=== PATIENT | male | born 1970 | race Caucasian/White ===

== ENCOUNTER 2024-03-03 16:09 | Outpatient (CLI) | payer BC, SELFPAY ==
--- NOTE | ~2024-03-03 | XR_ITS ---
XR_[id number] 03/03/2024 16:25 Indication: Neck pain Procedure: 3 view cervical spine Comparison: No prior studies for comparison. Findings: Straightening of cervical lordosis. Vertebral body heights are maintained. No fracture, sub luxation or dislocation. There are prominent ventral osteophytes at multiple levels. No prevertebral soft tissue swelling. Mild multilevel uncinate hypertrophy. Odontoid process is normal. Impression: 1: Mild cervical spondylosis. Reviewed, dictated and finalized at location B. Impression: 1: Mild cervical spondylosis.
== END 2024-03-03 16:10 ==
PROVIDERS: PCP Family Medicine; Visit Provider Nurse Practitioner Family
DX: M79.601 Pain in right arm (principal); M47.892 Other spondylosis, cervical region
CPT/HCPCS: 72040

== ENCOUNTER 2024-03-11 15:01 | Outpatient (CLI) | payer BC, SELFPAY ==
--- NOTE | ~2024-03-11 | MR_ITS ---
EXAMINATION: MR cervical spine wo con DATE: 03/11/2024 15:47 INDICATION: Cervicalgia. Neck pain. TECHNIQUE: Magnetic resonance imaging (MRI) of the cervical spine was performed without intravenous c ontrast. Sequences included sagittal T2-weighted FSE, sagittal T2-weighted FS FSE, sagittal T1-weight ed FSE, axial MERGE and axial T2-weighted FSE. COMPARISON: Cervical spine radiographs dated 03/03/2024 FINDINGS: Bone alignment is normal. Vertebral body heights are normal. Bone marrow signal intensity is normal . There is mild disc height loss and mild disc desiccation from C2-C3 through C7-T1. There are annula r fissures with disc extrusions at each of these levels. There is ossification of the posterior longi tudinal ligament overlying the disc extrusions. There is a small focus of increased fluid signal like ly related to myelomalacia at the left central cord at the level of C5-C6 where the cord is compresse d and deformed by the ossification. Remaining cord signal intensity is normal. Cervical soft tissues are unremarkable. The following disc levels are specifically discussed: C2-C3: Annular fissure and central disc extrusion with disc material extending at least 3 mm cephalad to the level of the inferior endplate of C2 with overlying ossification of the posterior longitudina l ligament. There is mild bilateral uncovertebral joint osteoarthritis. There is mild bilateral facet joint osteoarthritis. There is no neural foraminal stenosis. There is mild central canal stenosis at the level of the disc space with moderate stenosis with indentation of the undersurface of the cord resulting from ossification of the posterior longitudinal ligament or cartilage at the midportion of the vertebral body or the central canal measures 7 mm AP in the mid sagittal plane. 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 There is mild bilateral uncovertebral joint osteoarthritis. There is mi ld left and minimal right facet joint osteoarthritis. There is moderate bilateral neural foraminal st enosis. There is moderate central canal stenosis measuring 7 mm AP in the mid sagittal plane and inde nting the ventral surface of the cord. C4-C5: Small amount of heterotopic ossification overlying an annular fissure and central disc extrusi on. There is mild bilateral uncovertebral osteoarthritis. There is mild bilateral facet osteoarthriti s. There is mild right and mild to moderate left neural foraminal stenosis. There is mild central can al stenosis measuring 8-9 mm AP in the midsagittal plane with mild indentation of the ventral surface of the cord. 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 There is mild bilateral uncovertebral joint osteoarthritis. There is mi ld bilateral facet joint osteoarthritis. There is moderate right and [id number] left neural f oraminal stenosis. There is severe central canal stenosis measuring 5 mm in the mid sagittal plane wi th indention of the ventral surface of the cord or prominent on the left where there is a underlying small focal central T2 hyperintense myelomalacia. 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 There is mild right and moderate left uncovertebral joint osteoarthriti s. There is mild bilateral facet joint osteoarthritis. There is moderate bilateral neural foraminal s tenosis. There is moderate central canal stenosis measuring 8 mm AP in the mid sagittal plane with in dention of the ventral surface of the cord. C6-C7: Small amount of heterotopic ossification of the posterior longitudinal ligament overlying an a nnular fissure with disc extrusion. There is moderate right and severe left uncovertebral joint osteo arthritis. There is mild bilat
== END 2024-03-11 15:02 ==
LOC: GOSHIMG 15:02
PROVIDERS: PCP Family Medicine; Visit Provider Nurse Practitioner Family
DX: M47.892 Other spondylosis, cervical region (principal)
CPT/HCPCS: 72141

== ENCOUNTER 2024-10-19 01:53 | Day surgery (SDC) | payer BC, SELFPAY ==
[2024-10-09 13:52] VITALS: BMI 36.1
[2024-10-19 12:52] VITALS: BP 135/70; PULSE 62; RESP 20; TEMP 35.9; O2SAT 99
--- NOTE | 2024-10-19 13:07 | P.PNAN_ITS ---
Anes - Initial Pre Proc Eval Procedure: Operation Date: 10/19/24 14:00 Proposed Procedures p Screening Colonoscopy - Nomi Lakhani MD Date/Time: 10/19/24 13:07 Surgeon: Nomi Lakhani MD Pre Op Diagnosis: Family history of colon polyps, unspecified Patient Data Age: 54 Gender: M Height: 1.75 m Weight: 109.2 kg Last Vital Signs Temp 96.6 F L 10/19/24 12:52 Pulse 62 10/19/24 12:52 Resp 20 10/19/24 12:52 BP 135/70 10/19/24 12:52 Pulse Ox 99 10/19/24 12:52 O2 Del Method Room Air 10/19/24 12:52 Allergies Allergy/AdvReac Type Severity Reaction Status Date / Time No Known Allergies Allergy Verified 10/19/24 12:51 Home Medications ?Medication ?Instructions ?Recorded ?Confirmed ?Type aspirin 81 mg chewable tablet 81 mg PO DAILY 08/06/19 10/19/24 History multivit with minerals-iron 18 1 tablet PO DAILY 08/06/19 10/19/24 History mg-folic ac 400 mcg-vit K 25 mcg tablet (Adults Multivitamin) sitagliptin phos 50 mg-metformin 1 tablet PO DAILY #30 tabs 03/03/24 10/19/24 Rx ER 500 mg tablet,extended rel 24h mp (Janumet XR) cyclobenzaprine 10 mg tablet See Rx Instructions .Route 07/13/24 10/09/24 Rx .COMPLEX #90 tabs lisinopril 10 mg tablet 10 mg PO DAILY #90 tabs 08/17/24 10/19/24 Rx tirzepatide 2.5 mg/0.5 mL 2.5 mg (0.5 mL) subcut WEEKLY #6 mL 09/03/24 10/09/24 Rx subcutaneous pen injector (Mounjaro) Patient hx anesthesia problems: none Family hx anesthesia problems: none Results Review: All pre-operative results and documents have been reviewed as part of the pre- operative evaluation. [facility] Past Medical History Medical History Candidiasis Prostatitis Essential (primary) hypertension HU on CPAP Type 2 diabetes mellitus with hyperglycemia Family History Family History Father Malignant neoplasm of prostate, Onset Age: 76 Mother Diabetes mellitus Hypertension Family history of coronary artery disease Other Cerebrovascular accident Family history of cardiovascular disease Family history of mental disorder Social History Social History Smoking status: Never smoker Alcohol intake: current Alcohol use details: occasionally Substance use: never Substance use type: does not use Lack of Transportation: No Lack of Food: Never True Current Housing: I Have Housing Concerned About Future Housing: No Difficulty Paying Gas/Electric Bills: No Difficulty Paying for Meds: No Currently Unemployed: No Education: High School Diploma/GED Difficulty w/ Childcare or Family Care: No Anes - Eval Final PreProcedure Day of Procedure 10/19/24 13:07 Patient weight: obese Lungs: normal air movement Airway: Mallampati scale class II Neurological: alert and oriented Last oral intake: >/= 8 hours ASA classification: III Emergent: no Anesthetic plan: proceed Anesthesia type and monitoring: general GIVS and standard monitoring Results Review: All pre-operative results and documents have been reviewed as part of the pre- operative evaluation. HTN, hyperlipidemia, HU on CPAP, DM. Informed Consent: The patient's anesthetic plan and its attendant risks and benefits were discussed with the patient/family/POA. Questions were solicited and answers provided to the satisfaction of the patient/family/POA.
[2024-10-19] MEDS: LACTATED RINGERS 1,000 ML 150 ML IV CONT (13:08)
[2024-10-19 13:09] LABS: Glucose Point of Care 130 mg/dl (65-105)
--- NOTE | 2024-10-19 13:15 | PM.IMHP ---
H&P: HPI History of Present Illness Date/Time: 10/19/24 13:15 Chief Complaint: History of colon polyps Narrative: The patient has a history of colonic polyps, the last colonoscopy was 5 years ago. Review of Systems Review of Systems: All systems reviewed & are unremarkable except as noted in HPI and below PMFSH Past Medical History Medical History Candidiasis Prostatitis Essential (primary) hypertension HU on CPAP Type 2 diabetes mellitus with hyperglycemia Family History Family History Father Malignant neoplasm of prostate, Onset Age: 76 Mother Diabetes mellitus Hypertension Family history of coronary artery disease Other Cerebrovascular accident Family history of cardiovascular disease Family history of mental disorder Social History Social History Smoking status: Never smoker Alcohol intake: current Alcohol use details: occasionally Substance use: never Substance use type: does not use Lack of Transportation: No Lack of Food: Never True Current Housing: I Have Housing Concerned About Future Housing: No Difficulty Paying Gas/Electric Bills: No Difficulty Paying for Meds: No Currently Unemployed: No Education: High School Diploma/GED Difficulty w/ Childcare or Family Care: No Meds Home Medications and Allergies Home Medications ?Medication ?Instructions ?Recorded ?Confirmed ?Type aspirin 81 mg chewable tablet 81 mg PO DAILY 08/06/19 10/19/24 History multivit with minerals-iron 18 1 tablet PO DAILY 08/06/19 10/19/24 History mg-folic ac 400 mcg-vit K 25 mcg tablet (Adults Multivitamin) sitagliptin phos 50 mg-metformin 1 tablet PO DAILY #30 tabs 03/03/24 10/19/24 Rx ER 500 mg tablet,extended rel 24h mp (Janumet XR) cyclobenzaprine 10 mg tablet See Rx Instructions .Route 07/13/24 10/09/24 Rx .COMPLEX #90 tabs lisinopril 10 mg tablet 10 mg PO DAILY #90 tabs 08/17/24 10/19/24 Rx tirzepatide 2.5 mg/0.5 mL 2.5 mg (0.5 mL) subcut WEEKLY #6 mL 09/03/24 10/09/24 Rx subcutaneous pen injector (Mounjaro) Allergies Allergy/AdvReac Type Severity Reaction Status Date / Time No Known Allergies Allergy Verified 10/19/24 12:51 Vital Signs Vital Signs - 24 hr 10/19/24 12:52 Temperature 96.6 F L Pulse Rate 62 Respiratory Rate 20 Blood Pressure 135/70 Pulse Oximetry 99 Oxygen Delivery Room Air Exam Const: General: cooperative and healthy appearing Resp: Effort & Inspection: normal respiratory effort and able to speak in complete sentences Auscultation: clear to auscultation bilaterally Cardio: Rate: regular rate Rhythm: regular rhythm GI: Inspection: normal to inspection GI Palp: No No hepatosplenomegaly present Auscultation: normal bowel sounds Rectal Exam: deferred Skin: General skin exam: normal color Psych: Appearance: grossly normal Mental Status: mental status grossly normal Assessment and Plan Assessment and plan (1) History of colonic polyps: Code(s): Z86.0100 - Personal history of colon polyps, unspecified Status: Acute Assessment and Plan: The patient is deemed a good candidate for the procedure. Consent signed. Will proceed.
[2024-10-19] MEDS: SIMETHICONE ORAL SUSPENSION 20 MG/0.3 ML 30 ML BOTTLE 0.6 ML IRRIGATION (13:28)
[2024-10-19 13:38] VITALS: BP 130/74; PULSE 72; RESP 18; O2SAT 98
[2024-10-19 13:48] VITALS: BP 126/69; PULSE 68; RESP 21; O2SAT 99
[2024-10-19 13:58] VITALS: BP 133/80; PULSE 66; RESP 18; O2SAT 98
== END 2024-10-19 14:07 | disposition home or self-care (01) ==
PROVIDERS: PCP Family Medicine; Visit Provider Internal Medicine Gastroenterology
PROC: 0DJD8ZZ Inspection of Lower Intestinal Tract, Via Natural or Artificial Opening Endoscopic (ICD-10-PCS; CPT 45378; principal; 2024-10-19 14:00)
DX: Z12.11 Encounter for screening for malignant neoplasm of colon (principal); Z83.719 Family history of colon polyps, unspecified; I10 Essential (primary) hypertension; E11.65 Type 2 diabetes mellitus with hyperglycemia; G47.33 Obstructive sleep apnea (adult) (pediatric); E66.9 Obesity, unspecified; Z68.35 Body mass index [BMI] 35.0-35.9, adult; Z79.82 Long term (current) use of aspirin; Z79.84 Long term (current) use of oral hypoglycemic drugs; Z79.85 Long-term (current) use of injectable non-insulin antidiabetic drugs; Z99.89 Dependence on other enabling machines and devices; Z80.42 Family history of malignant neoplasm of prostate; Z82.49 Family history of ischemic heart disease and other diseases of the circulatory system
CPT/HCPCS: 45378; 82948; J2003; J2704; J7120